=== PATIENT | female | born 1995 | race Two or more races ===

== ENCOUNTER 2025-04-03 09:29 | Emergency (ER) | payer OTHER ==
[~2025-04-03] VITALS: Ht 154.9 cm; Wt 56.7 kg
[2025-04-03] MEDS ORDERED: PRENATE DHA SO1 EAC1 PO (10:33)
[2025-04-03 11:11] LABS: BASO % 0.7 % (0.1-1.2); EOS # 0.05 (0.04-0.54); EOS % 0.6 % (0.7-7.0); LYMPH # 1.29 (1.18-3.74); LYMPH % 14.2 % (19.3-53.1); MEAN PLATELET VOLUME 10.40 fl (9.4-12.4); MONO # 0.43 (0.24-0.82); MONO % 4.7 % (4.7-12.5); NEUT # 7.23 (1.56-6.13); NEUT % 79.5 % (34.0-71.1); RED CELL DISTRIBUTION WIDTH 11.9 % (11.6-14.4)
[2025-04-03 11:41] LABS: URINE APPEARANCE Clear; URINE BILIRRUBIN Negative (NEGATIVE); URINE BLOOD Small; URINE COLOR Yellow; URINE GLUCOSE Negative (NEGATIVE); URINE KETONE 15 (NEGATIVE); URINE LEUKOCYTE Negative; URINE NITRATE Negative; URINE PROTEIN Negative (NEGATIVE); URINE UROBILINOGEN 0.2 E.U./dl
[2025-04-03 11:45] LABS: URINE BACTERIA 1430.3 uL (0.0-1933); URINE EPITHELIAL CELLS 8.9 uL (0.0-38.8); URINE RBC 3.6 uL (0.0-20.8); URINE WBC 17.8 uL (0.0-23.2)
[2025-04-03 11:47] LABS: URINE CAST 0.14 uL (0.0-1.40)
[2025-04-03 11:51] LABS: ALT/SGPT 18.0 U/L (12-78); AST/SGOT 8.0 U/L (15-37); BILIRUBIN TOTAL 1.46 mg/dL (0.3-1.2); BUN CREA RATIO 19.0 (7.0-25.0); CREATININE SERUM 0.42 mg/dL (0.55-1.02); GFR 178.38; GLOBULINA 3.5 G/DL (2.4-3.5); GLUCOSE FASTING 76.0 mg/dL (65-100); OSMOLALITY SERUM 276.0 MOSM/KG (275-295)
[2025-04-03] MEDS ORDERED: FLUCONAZOLE150 MG PO (13:15)
== END 2025-04-03 13:27 | disposition home or self-care (01) ==
LOC: ER 09:29
PROVIDERS: Preventive Medicine Public Health & General Preventive Medicine
DX: O20.9 Hemorrhage in early pregnancy, unspecified (principal); O98.811 Other maternal infectious and parasitic diseases complicating pregnancy, first trimester; O26.899 Other specified pregnancy related conditions, unspecified trimester; R10.20 Pelvic and perineal pain unspecified side; Z3A.08 8 weeks gestation of pregnancy; Z91.013 Allergy to seafood